=== PATIENT | female | born 1955 | race American Indian/Alaskan Native ===

== ENCOUNTER 2017-06-22 16:18 | Outpatient (CLI) | payer OTHER ==
--- NOTE | 2017-06-24 11:52 | Magnetic Resonance Report ---
MRI LUMBAR SPINE WITHOUT CONTRAST: 06/22/17 CLINICAL: Lumbar pain and radiculopathy. TECHNIQUE: Sagittal and axial T1 and T2, and sagittal STIR sequences on a 1.5 Annemarie magnet. FINDINGS: Grade I L4-5 spondylolisthesis with no pars defect identified. L4-5 disc space narrowing and Modic endplate changes at L4 and L5 bodies. Rest of the vertebral bodies are normal alignment with normal vertebral body height and disc spaces. The overall marrow signal is normal. The conus medullaris is normal and terminates at T12-L1. L1-2: Intact. L2-3: Intact disc. Mild bilateral facet hypertrophy and ligamentum flavum hypertrophy. L3-4: Mild circumferential disc bulge. Mild bilateral facet hypertrophy and ligamentum flavum hypertrophy. No neural foraminal narrowing. L4-5: Grade I spondylolisthesis but no pars defect. Degeneration of the disc and a large broad-based central and left paracentral disc protrusion with disc protrusion extending into bilateral neural foramina. Marked narrowing of the right neural foramen. Paradoxically, there is a larger disc protrusion on the left side but the left neural foramen is wider with less narrowing than on the right. This is likely attributable to differences in the degree of spondylolisthesis on each side. L5-S1: Small focal right central disc protrusion producing mass effect on the right S2 nerve root. No neural foraminal narrowing. IMPRESSION: 1. Grade I L4-5 spondylolisthesis with no pars defect. A large broad-based central and left paracentral disc protrusion at L4-5 with disc protrusion extending into bilateral neural foramina. Marked right L4-5 neural foraminal narrowing and moderate left L4-5 neural foraminal narrowing. 2. A small right paracentral L5-S1 disc protrusion producing mass effect on the right S2 nerve root. 3. Mild L3-4 degenerative disc disease with a mild bulge of the disc. 4. Multilevel facet joint arthropathy.
== END 2017-06-22 16:19 | disposition home or self-care (01) ==
LOC: MRI 16:18
PROVIDERS: ATTEND Physical Medicine & Rehabilitation
DX: M48.061 Spinal stenosis, lumbar region without neurogenic claudication (principal); M54.16 Radiculopathy, lumbar region; M43.16 Spondylolisthesis, lumbar region; M51.27 Other intervertebral disc displacement, lumbosacral region; M51.36 Other intervertebral disc degeneration, lumbar region; M12.88 Other specific arthropathies, not elsewhere classified, other specified site; M24.28 Disorder of ligament, vertebrae
CPT/HCPCS: 72148

== ENCOUNTER 2017-07-03 09:48 | Emergency (ER) | payer OTHER ==
[2017-07-03 11:31] VITALS: BP 151/103
--- NOTE | 2017-07-03 13:14 | Emergency Department Report ---
ED Back Pain/Injury HPI - General Chief Complaint: Back Pain/Injury Stated Complaint: LOWER BACK PAIN Time Seen by Provider: 07/03/17 12:59 Source: patient Limitations: No Limitations - History of Present Illness Initial Comments: Patient is a 61-year-old female presented with right-sided sciatica pain. Patient states been present for approximately 6 months however is worsened over the last week. Patient is on Tylenol 3 gabapentin for pain for the last several days was to stay stated that she was unable to really get out of bed this morning without significant pain. Patient denies any more recent trauma. Patient states it's right lower back radiating down her leg. Patient states pain is 9 out of 10 in severity. Patient denies any nausea vomiting fevers chills dysuria urinary frequency urinary retention or fecal incontinence at this time. - Related Data Home Medications Medication Instructions Recorded Confirmed Last Taken ALBUTEROL Inhaler [Proair] 2 puff IH QID PRN 11/16/15 11/16/15 Unknown Vitamin D 1 tab PO DAILY 11/16/15 11/16/15 Unknown Previous Rx's Medication Instructions Recorded Last Taken Type Albuterol Sulfate [Ventolin HFA] 2 puff IH Q4H PRN #1 hfa.[email or web address] 09/29/13 06:00 Rx Lisinopril/Hydrochlorothiazide 1 each PO QDAY #30 tablet 06/27/14 Unknown Rx [Zestoretic 20-25 mg] Metoprolol [Lopressor TAB] 50 mg PO BID #60 tablet 06/27/14 Unknown Rx NIFEdipine [NIFEdipine ER] 90 mg PO QDAY #30 tab.er.24 06/27/14 Unknown Rx Pravastatin [Pravachol] 40 mg PO QDAY #30 tablet 06/27/14 Unknown Rx Spironolactone 25 mg PO QDAY #30 tablet 06/27/14 Unknown Rx Cyclobenzaprine HCl [Flexeril 5 MG 5 mg PO TID #20 tab 11/16/15 Unknown Rx TAB] Ibuprofen [Motrin 600 MG tab] 600 mg PO Q8H PRN #30 tablet 11/16/15 Unknown Rx HYDROcodone/APAP 5-325 [[place] 1 each PO Q6HR PRN #12 tablet 07/03/17 Unknown Rx 5/325] ED Review of Systems ROS: Stated complaint: LOWER BACK PAIN Other details as noted in HPI Comment: All other systems reviewed and negative ED Past Medical Hx - Past Medical History Hx Hypertension: Yes Hx Diabetes: Yes Hx Arthritis: Yes Hx Asthma: Yes Additional medical history: bronchitis - Surgical History Hx Cholecystectomy: Yes Additional Surgical History: sinus surg, hemorrhoidectomy - Social History Smoking Status: Never Smoker Substance Use Type: Alcohol - Medications Home Medications: Home Medications Medication Instructions Recorded Confirmed Last Taken Type Albuterol Sulfate [Ventolin HFA] 2 puff IH Q4H PRN #1 hfa.aer.ad 09/29/1306/27/14 06:00 Rx Lisinopril/Hydrochlorothiazide 1 each PO QDAY #30 tablet 06/27/14 11/16/15 Unknown Rx [Zestoretic 20-25 mg] Metoprolol [Lopressor TAB] 50 mg PO BID #60 tablet 06/27/14 11/16/15 Unknown Rx NIFEdipine [NIFEdipine ER] 90 mg PO QDAY #30 tab.er.24 06/27/14 11/16/15 Unknown Rx Pravastatin [Pravachol] 40 mg PO QDAY #30 tablet 06/27/14 11/16/15 Unknown Rx Spironolactone 25 mg PO QDAY #30 tablet 06/27/14 11/16/15 Unknown Rx ALBUTEROL Inhaler [Proair] 2 puff IH QID PRN 11/16/15 11/16/15 Unknown History Cyclobenzaprine HCl [Flexeril 5 MG 5 mg PO TID #20 tab 11/16/15 Unknown Rx TAB] Ibuprofen [Motrin 600 MG tab] 600 mg PO Q8H PRN #30 tablet 11/16/15 Unknown Rx Vitamin D 1 tab PO DAILY 11/16/15 11/16/15 Unknown History HYDROcodone/APAP 5-325 [[place] 1 each PO Q6HR PRN #12 tablet 07/03/17 Unknown Rx 5/325] ED Physical Exam - General Limitations: No Limitations General appearance: alert, in no apparent distress - Head Head exam: Present: atraumatic, normocephalic - Eye Eye exam: Present: normal appearance - ENT ENT exam: Present: mucous membranes moist - Neck Neck exam: Present: normal inspection - Respiratory Respiratory exam: Present: normal lung sounds bilaterally. Absent: respiratory distress - Cardiovascular Cardiovascular Exam: Present: regular rate, normal rhythm. Absent: systolic murmur, diastolic murmur, rubs, gallop - GI/Abdominal GI/Abdominal exam: Present: soft, normal bowel sounds - Extremities Exam Extremities exam: Present: normal inspection - Back Exam Back exam: Present: normal inspection - Neurological Exam Neurological exam: Present: alert, oriented X3 - Psychiatric Psychiatric exam: Present: normal affect, normal mood - Skin Skin exam: Present: warm, dry, intact, normal color. Absent: rash ED Course Vital Signs 07/03/17 11:29 Temperature 98.1 F Pulse Rate 98 H Respiratory 18 Rate Blood Pressure 151/103 O2 Sat by Pulse 98 Oximetry ED Medical Decision Making - Medical Decision Making Patient WILL have her Tylenol 3 changed to Vicodin patient be discharged home. Patient will not be started on steroids since she is diabetic. Critical care attestation.: If time is entered above; I have spent that time in minutes in the direct care of this critically ill patient, excluding procedure time. ED Disposition Clinical Impression: Sciatica Qualifiers: Laterality: right Qualified Code(s): M54.31 - Sciatica, right side Disposition: - TO HOME OR SELFCARE Is pt being admited?: No Does the pt Need Aspirin: No Condition: Stable Instructions: Lumbar Radiculopathy (ED) Prescriptions: HYDROcodone/APAP 5-325 [[place] 5/325] 1 each PO Q6HR PRN #12 tablet PRN Reason: Pain Referrals: PRIMARY CARE, [Primary Care Provider] - 3-5 Days
== END 2017-07-03 13:18 | disposition home or self-care (01) ==
LOC: ED 09:48
DX: M54.41 Lumbago with sciatica, right side (principal); I10 Essential (primary) hypertension; E11.9 Type 2 diabetes mellitus without complications; M19.90 Unspecified osteoarthritis, unspecified site
CPT/HCPCS: 99282

== ENCOUNTER 2017-07-22 10:58 | Emergency (ER) | payer OTHER ==
[2017-07-22] MEDS ORDERED: FLEXERIL PO ONE (12:30)
[2017-07-22] MEDS ORDERED: TORADOL IM ONE (12:30)
--- NOTE | 2017-07-22 12:47 | Emergency Department Report ---
HPI - General Chief Complaint: Back Pain/Injury Time Seen by Provider: 07/22/17 12:30 - HPI HPI: Patient is a 61-year-old female who presents to ED complaining of acute on chronic right buttock/hip pain radiating to thighs. Patient states she has a history of sciatica and currently sees a orthopedic doctor. Patient states that she is waiting on insurance to approve for cortisone shot should be done by orthopedic. She states that the past couple of days that the pain has gotten a bit worse. SHe denies any recent trauma or injuries or falls. ED Past Medical Hx - Past Medical History Hx Hypertension: Yes Hx Diabetes: Yes Hx Arthritis: Yes Hx Asthma: Yes Additional medical history: bronchitis, chronic back pain. - Surgical History Hx Cholecystectomy: Yes Additional Surgical History: sinus surg, hemorrhoidectomy - Social History Smoking Status: Never Smoker Substance Use Type: None - Medications Home Medications: Home Medications Medication Instructions Recorded Confirmed Last Taken Type Albuterol Sulfate [Ventolin HFA] 2 puff IH Q4H PRN #1 hfa.aer.ad 09/29/1306/27/14 06:00 Rx Lisinopril/Hydrochlorothiazide 1 each PO QDAY #30 tablet 06/27/14 11/16/15 Unknown Rx [Zestoretic 20-25 mg] Metoprolol [Lopressor TAB] 50 mg PO BID #60 tablet 06/27/14 11/16/15 Unknown Rx NIFEdipine [NIFEdipine ER] 90 mg PO QDAY #30 tab.er.24 06/27/14 11/16/15 Unknown Rx Pravastatin [Pravachol] 40 mg PO QDAY #30 tablet 06/27/14 11/16/15 Unknown Rx Spironolactone 25 mg PO QDAY #30 tablet 06/27/14 11/16/15 Unknown Rx ALBUTEROL Inhaler [Proair] 2 puff IH QID PRN 11/16/15 11/16/15 Unknown History Cyclobenzaprine HCl [Flexeril 5 MG 5 mg PO TID #20 tab 11/16/15 Unknown Rx TAB] Ibuprofen [Motrin 600 MG tab] 600 mg PO Q8H PRN #30 tablet 11/16/15 Unknown Rx Vitamin D 1 tab PO DAILY 11/16/15 11/16/15 Unknown History HYDROcodone/APAP 5-325 [[place] 1 each PO Q6HR PRN #12 tablet 07/03/17 Unknown Rx 5/325] Cyclobenzaprine [Flexeril 10 MG 10 mg PO QHS #20 tablet 07/22/17 Unknown Rx TAB] Diclofenac Dr [Voltaren Dr] 75 mg PO BID #20 tablet 07/22/17 Unknown Rx ED Review of Systems ROS: Stated complaint: CHRONIC BACK PAIN Other details as noted in HPI Constitutional: denies: chills, fever Eyes: denies: eye pain, eye discharge, vision change ENT: denies: ear pain, throat pain Respiratory: denies: cough, shortness of breath, wheezing Cardiovascular: denies: chest pain, palpitations Endocrine: no symptoms reported Gastrointestinal: denies: abdominal pain, nausea, diarrhea Genitourinary: denies: urgency, dysuria, discharge Musculoskeletal: denies: back pain, joint swelling, arthralgia Skin: denies: rash, lesions Neurological: denies: headache, weakness, paresthesias Psychiatric: denies: anxiety, depression Hematological/Lymphatic: denies: easy bleeding, easy bruising Physical Exam - Physical Exam Vital Signs: Vital Signs 07/22/17 11:49 Temperature 98 F Pulse Rate 63 Respiratory 16 Rate Blood Pressure 173/95 O2 Sat by Pulse 97 Oximetry Physical Exam: GENERAL: Alert and oriented x3, no apparent distress, Normal Gait, atraumatic. HEAD: Head is normocephalic and a-traumatic. NECK: Supple. Non edematous, No lymphadenopathy or thyromegaly. No C-spine tenderness, full range of motion LUNGS: Symetrical with respiration, No wheezing, no rales or crackles, CTAB. HEART: S1, S2 present, regular rate and rhythm without murmur, no rubs, no gallops. Non tender to palpation BACK: Full range of motion, no spinal tenderness. EXTREMITIES/MUSCULOSKELETAL: No cyanosis, clubbing, rash, lesions or edema on all lower extremities. Full ROM bilaterally. UE/LE Pulses 2+ bilaterally. LE and UE 5+ strength bilaterally, patient able to flex and extend hip, knee without problems NEUROLOGIC: The patient is cooperative with no focal neurologic deficits. SKIN: Warm and dry, No lesions, No ulceration or induration present. ED Course Vital Signs 07/22/17 11:49 Temperature 98 F Pulse Rate 63 Respiratory 16 Rate Blood Pressure 173/95 O2 Sat by Pulse 97 Oximetry ED Medical Decision Making - Medical Decision Making 61-year-old female presents to ED with lumbar radiculopathy with sciatica. ED course: Patient received Toradol and Flexeril in ED. Discussed patient to call her insurance and follow-up with her orthopedic doctor. Vital signs are normal patient is in no acute distress Discussed with patient follow-up with primary care physician. Discussed the patient and take medications as prescribed. Patient has no neurological deficit. Patient is alert and oriented 3 and understands all instructions given. Discussed drowsiness effect of Flexeril makes her drowsy and not to operate machinery while taking flexeril Critical care attestation.: If time is entered above; I have spent that time in minutes in the direct care of this critically ill patient, excluding procedure time. ED Disposition Clinical Impression: Lumbar pain with radiation down right leg, Lumbar radiculopathy, chronic Disposition: [id number] TO HOME OR SELFCARE Is pt being admited?: No Does the pt Need Aspirin: No Condition: Stable Instructions: Lumbar Radiculopathy (ED), Chronic Back Pain (ED) Additional Instructions: Make sure to follow up with the primary care physician as discussed. Take all your medications as you've been prescribed. If you have any worsening symptoms or develop new symptoms please return to ED immediately. Prescriptions: Cyclobenzaprine [Flexeril 10 MG TAB] 10 mg PO QHS #20 tablet Diclofenac [Dante Campbell] 75 mg PO BID #20 tablet Forms: Work/School Release Form(ED) Time of Disposition: 13:02
[2017-07-22 13:28] VITALS: BP 132/80
== END 2017-07-22 13:27 | disposition home or self-care (01) ==
LOC: ED 10:58
DX: M54.16 Radiculopathy, lumbar region (principal); M54.5 Low back pain; G89.29 Other chronic pain; I10 Essential (primary) hypertension; E11.9 Type 2 diabetes mellitus without complications; M19.90 Unspecified osteoarthritis, unspecified site; J45.909 Unspecified asthma, uncomplicated
CPT/HCPCS: 96372; 99282; J1885

== ENCOUNTER 2019-11-12 15:50 | Emergency (ER) | payer MEDICARE ==
--- NOTE | 2019-11-12 16:18 | Event Note ---
ED Screening Note ED Screening Note: This initial assessment/diagnostic orders/clinical plan/treatment(s) is/are subject to change based on patients health status, clinical progression and re- assessment by fellow clinical providers in the ED. Further treatment and workup at subsequent clinical providers discretion. Patient/guardian urged not to elope from the ED as their condition may be serious if not clinically assessed and managed. Initial orders include: chest xray
--- NOTE | 2019-11-12 17:18 | XRay Report ---
CHEST 2 VIEWS INDICATION: cough. COMPARISON: None FINDINGS: Support devices: None. Heart: Within normal limits. Lungs/pleura: No acute air space or interstitial disease. No pneumothorax. Additional findings: None. IMPRESSION: No acute findings. Signer Name: Dago Anguiano Jr, MD Signed: 11/12/2019 5:14 PM Workstation Name: [id number]
[2019-11-12 19:00] LABS: Hematocrit 38.2 % (30.3-42.9); Hemoglobin 13.3 gm/dl (10.1-14.3); Mean Corpuscular HGB Conc 35 % (30-34); Mean Corpuscular Volume 90 fl (79-97); Platelet Count 344 K/mm3 (140-440); Red Blood Count 4.26 M/mm3 (3.65-5.03); Red Cell Distribution Width 15.1 % (13.2-15.2)
[2019-11-12 19:17] LABS: Alanine Aminotransferase 44 units/L (7-56); Albumin 3.9 g/dL (3.9-5); BUN/Creatinine Ratio 19; Blood Urea Nitrogen 23 mg/dL (7-17); Calcium 9.7 mg/dL (8.4-10.2); Hemolysis Index 8
--- NOTE | 2019-11-12 19:48 | Emergency Department Report ---
- General Chief Complaint: Upper Respiratory Infection Stated Complaint: COUGH Time Seen by Provider: 11/12/19 16:18 Source: patient Mode of arrival: Ambulatory Limitations: No Limitations - History of Present Illness Initial Comments: Patient is a 64-year-old female presents emergency room with complaints of sinus pressure and drainage that began 2 days ago. She states that she also has a postnasal drip and nasal congestion. She states that the postnasal drip is giving her a dry cough. She states that her ears also feel like they are clogged. She denies any productive cough, shortness of breath, chest pain, fever, nausea, vomiting, diarrhea. She denies any known sick contacts or recent travel. She has a past medical history of diabetes, hypertension, mild asthma. No allergies to medications. She states that she was previously on glipizide and metformin for her diabetes but her doctor changed her to once weekly Trulicity and they were going to reevaluate to see if she neededfurther medication management. She states that she has appointment with her doctor t omorrow 11/13/2019. - Related Data Home Medications Medication Instructions Recorded Confirmed Last Taken Albuterol Mdi (or & Nicu Only) 2 puff IH QID PRN 11/16/15 11/16/15 Unknown [Proair] Vitamin D 1 tab PO DAILY 11/16/15 11/16/15 Unknown Previous Rx's Medication Instructions Recorded Last Taken Type Albuterol Sulfate [Ventolin HFA] 2 puff IH Q4H PRN #1 hfa.aer.ad 09/29/13 06/27/14 06:00 Rx Lisinopril/Hydrochlorothiazide 1 each PO QDAY #30 tablet 06/27/14 Unknown Rx [Zestoretic 20-25 mg] Metoprolol [Lopressor TAB] 50 mg PO BID #60 tablet 06/27/14 Unknown Rx NIFEdipine [NIFEdipine ER] 90 mg PO QDAY #30 tab.er.24 06/27/14 Unknown Rx Pravastatin [Pravachol] 40 mg PO QDAY #30 tablet 06/27/14 Unknown Rx Spironolactone 25 mg PO QDAY #30 tablet 06/27/14 Unknown Rx Cyclobenzaprine HCl [Flexeril 5 MG 5 mg PO TID #20 tab 11/16/15 Unknown Rx TAB] Ibuprofen [Motrin 600 MG tab] 600 mg PO Q8H PRN #30 tablet 11/16/15 Unknown Rx HYDROcodone/APAP 5-325 [[place] 1 each PO Q6HR PRN #12 tablet 07/03/17 Unknown Rx 5/325] Cyclobenzaprine [Flexeril 10 MG 10 mg PO QHS #20 tablet 07/22/17 Unknown Rx TAB] Diclofenac Dr [Voltaren Dr] 75 mg PO BID #20 tablet 07/22/17 Unknown Rx Acetaminophen/Chlorpheniramine 1 each PO Q6HR #14 tablet 11/12/19 Unknown Rx [Coricidin Hbp Cold-Flu Tablet] Amoxicillin/Potassium Clav 1 each PO BID 10 Days #20 tablet 11/12/19 Unknown Rx [Augmentin 875-125 Tablet] Cetirizine HCl [Zyrtec 10mg tab] 10 mg PO DAILY #14 tablet 11/12/19 Unknown Rx Allergies Allergy/AdvReac Type Severity Reaction Status Date / Time No Known Allergies Allergy Verified 11/12/19 15:57 ED Review of Systems ROS: Stated complaint: COUGH Other details as noted in HPI Comment: All other systems reviewed and negative ED Past Medical Hx - Past Medical History Previous Medical History?: Yes Hx Hypertension: Yes Hx Diabetes: Yes Hx Arthritis: Yes Hx Asthma: Yes Additional medical history: bronchitis, chronic back pain. - Surgical History Past Surgical History?: Yes Hx Cholecystectomy: Yes Additional Surgical History: sinus surg, hemorrhoidectomy - Social History Smoking Status: Never Smoker Substance Use Type: Alcohol - Medications Home Medications: Home Medications Medication Instructions Recorded Confirmed Last Taken Type Albuterol Sulfate [Ventolin HFA] 2 puff IH Q4H PRN #1 hfa.aer.ad 09/29/13 11/16/15 06/27/14 06:00 Rx Lisinopril/Hydrochlorothiazide 1 each PO QDAY #30 tablet 06/27/14 11/16/15 Unknown Rx [Zestoretic 20-25 mg] Metoprolol [Lopressor TAB] 50 mg PO BID #60 tablet 06/27/14 11/16/15 Unknown Rx NIFEdipine [NIFEdipine ER] 90 mg PO QDAY #30 tab.er.24 06/27/14 11/16/15 Unknown Rx Pravastatin [Pravachol] 40 mg PO QDAY #30 tablet 06/27/14 11/16/15 Unknown Rx Spironolactone 25 mg PO QDAY #30 tablet 06/27/14 11/16/15 Unknown Rx Albuterol Mdi (or & Nicu Only) 2 puff IH QID PRN 11/16/15 11/16/15 Unknown History [Proair] Cyclobenzaprine HCl [Flexeril 5 MG 5 mg PO TID #20 tab 11/16/15 Unknown Rx TAB] Ibuprofen [Motrin 600 MG tab] 600 mg PO Q8H PRN #30 tablet 11/16/15 Unknown Rx Vitamin D 1 tab PO DAILY 11/16/15 11/16/15 Unknown History HYDROcodone/APAP 5-325 [[place] 1 each PO Q6HR PRN #12 tablet 07/03/17 Unknown Rx 5/325] Cyclobenzaprine [Flexeril 10 MG 10 mg PO QHS #20 tablet 07/22/17 Unknown Rx TAB] Diclofenac Dr [Voltaren Dr] 75 mg PO BID #20 tablet 07/22/17 Unknown Rx Acetaminophen/Chlorpheniramine 1 each PO Q6HR #14 tablet 11/12/19 Unknown Rx [Coricidin Hbp Cold-Flu Tablet] Amoxicillin/Potassium Clav 1 each PO BID 10 Days #20 tablet 11/12/19 Unknown Rx [Augmentin 875-125 Tablet] Cetirizine HCl [Zyrtec 10mg tab] 10 mg PO DAILY #14 tablet 11/12/19 Unknown Rx ED Physical Exam - General Limitations: No Limitations General appearance: alert, in no apparent distress - Head Head exam: Present: atraumatic, normocephalic - Eye Eye exam: Present: normal appearance - ENT ENT exam: Present: normal orophraynx, mucous membranes moist, TM's normal bilaterally, normal external ear exam, other (pale edematous turbinates with mucus drainage bilaterally) - Respiratory Respiratory exam: Present: normal lung sounds bilaterally. Absent: respiratory distress, wheezes, rales, rhonchi, stridor, chest wall tenderness, accessory muscle use, decreased breath sounds, prolonged expiratory - Cardiovascular Cardiovascular Exam: Present: regular rate, normal rhythm, normal heart sounds. Absent: systolic murmur, diastolic murmur, rubs, gallop - Neurological Exam Neurological exam: Present: alert, oriented X3 - Psychiatric Psychiatric exam: Present: normal affect, normal mood - Skin Skin exam: Present: warm, dry, intact ED Course Vital Signs 11/12/19 11/12/19 11/12/19 15:59 20:09 20:12 Temperature 98.4 F 99.0 F 99.0 F Pulse Rate 75 69 70 Respiratory 16 16 16 Rate Blood Pressure 175/92 170/83 Blood Pressure 170/83 [Left] O2 Sat by Pulse 99 100 98 Oximetry ED Medical Decision Making - Lab Data Result diagrams: 11/12/19 18:50 11/12/19 18:50 Lab Results 11/12/19 11/12/19 11/12/19 Range/Units 18:50 18:50 18:50 WBC 6.6 (4.5-11.0) K/mm3 RBC 4.26 (3.65-5.03) M/mm3 Hgb 13.3 (10.1-14.3) gm/dl Hct 38.2 (30.3-42.9) % MCV 90 (79-97) fl MCH 31 (28-32) pg MCHC 35 H (30-34) % RDW 15.1 (13.2-15.2) % Plt Count 344 (140-440) K/mm3 VBG pH 7.375 (7.320-7.420) Sodium 135 L (137-145) mmol/L Potassium 3.7 (3.6-5.0) mmol/L Chloride 98.1 (98-107) mmol/L Carbon Dioxide 27 (22-30) mmol/L Anion Gap 14 mmol/L BUN 23 H (7-17) mg/dL Creatinine 1.2 (0.6-1.2) mg/dL Estimated GFR 55 ml/min BUN/Creatinine Ratio 19 % Glucose 298 H (65-100) mg/dL Calcium 9.7 (8.4-10.2) mg/dL Total Bilirubin < 0.20 (0.1-1.2) mg/dL AST 26 (5-40) units/L ALT 44 (7-56) units/L Alkaline Phosphatase 113 (35-129) units/L Total Protein 7.7 (6.3-8.2) g/dL Albumin 3.9 (3.9-5) g/dL Albumin/Globulin Ratio 1.0 % Vital Signs 11/12/19 11/12/19 11/12/19 15:59 20:09 20:12 Temperature 98.4 F 99.0 F 99.0 F Pulse Rate 75 69 70 Respiratory 16 16 16 Rate Blood Pressure 175/92 170/83 Blood Pressure 170/83 [Left] O2 Sat by Pulse 99 100 98 Oximetry - Radiology Data Radiology results: report reviewed CHEST 2 VIEWS INDICATION: cough. COMPARISON: None FINDINGS: Support devices: None. Heart: Within normal limits. Lungs/pleura: No acute air space or interstitial disease. No pneumothorax. Additional findings: None. IMPRESSION: No acute findings. Signer Name: Dago Samuels Jr, MD Signed: 11/12/2019 5:14 PM Workstation Name: [id number] Transcribed By: TTR Dictated By: DAGO SAMUELS JR, MD Electronically Authenticated By: DAGO SAMUELS JR, MD Signed Date/Time: 11/12/191713 DD/ 13 TD/TT: - Medical Decision Making Patient is a 64-year-old female presents emergency room with complaints of sinus pressure and drainage that began 2 days ago. She states that she also has a postnasal drip and nasal congestion. She states that the postnasal drip is giving her a dry cough. She states that her ears also feel like they are clogge d. She denies any productive cough, shortness of breath, chest pain, fever, nausea, vomiting, diarrhea. She denies any known sick contacts or recent travel. She has a past medical history of diabetes, hypertension, mild asthma. No allergies to medications. She states that she was previously on glipizide and metformin for her diabetes but her doctor changed her to once weekly Trulicity and they were going to reevaluate to see if she neededfurther medication management. She states that she has appointment with her doctor tomorrow 11/13/2019. Vitals with elevated blood pressure, otherwise stable, discussed blood pressure elevation with patient, she states that she has an appointment with her primary care physician tomorrow, she states that she did take her blood pressure medication this morning, she is not having any symptoms related to elevated blood pressure. on exam: pale edematous turbinates with mucus drainage bilaterally, breath sounds are clear bilaterally, no w/r/r. Appears patient is having allergic rhinitis/sinusitis. labs with elevated blood glucose at 298, otherwise stable, discussed elevation with pt and she states her PCP is monitoring this as well. CXR: No acute findings. Patient given prescription for Augmentin, corcidin, Zyrtec. no clinical signs of PNA. Advised patient Please take medication as prescribed. Please also use Flonase nasal spray. Please keep your appointment with your primary care doctor for tomorrow 11/13/2019. Please discuss with your primary care doctor the elevation in your blood pressure during today's visit. Please also advise your primary care physician about your blood sugar which was 298 on your lab work today. Increase your water intake, decrease your sodium/sugar/carbohydrate intake, incorporate 30 minutes of daily exercise. Return to emergency room immediately for any new or worsening symptoms. Critical care attestation.: If time is entered above; I have spent that time in minutes in the direct care of this critically ill patient, excluding procedure time. ED Disposition Clinical Impression: Sinus pressure, Nasal congestion, Rhinorrhea, Dry cough, Elevated blood pressure reading, Hyperglycemia Sinusitis Qualifiers: Sinusitis location: unspecified location Chronicity: acute Recurrence: non- recurrent Qualified Code(s): J01.90 - Acute sinusitis, unspecified Disposition: DC- TO HOME OR SELFCARE Is pt being admited?: No Does the pt Need Aspirin: No Condition: Stable Instructions: Sinusitis (ED) Additional Instructions: Please take medication as prescribed. Please also use Flonase nasal spray. Please keep your appointment with your primary care doctor for tomorrow 11/13/2019. Please discuss with your primary care doctor the elevation in your blood pressure during today's visit. Please also advise your primary care physician about your blood sugar which was 298 on your lab work today. Increase your water intake, decrease your sodium/sugar/carbohydrate intake, incorporate 30 minutes of daily exercise. Return to emergency room immediately for any new or worsening symptoms. Prescriptions: Amoxicillin/Potassium Clav [Augmentin 875-125 Tablet] 1 each PO BID 10 Days #20 tablet Acetaminophen/Chlorpheniramine [Coricidin Hbp Cold-Flu Tablet] 1 each PO Q6HR #14 tablet Cetirizine HCl [Zyrtec 10mg tab] 10 mg PO DAILY #14 tablet Referrals: PRIMARY CARE, [Primary Care Provider] - 24 Hours Time of Disposition: 19:46 Print Language: GREENLAND[place]
[2019-11-12 20:12] VITALS: BP 170/83
== END 2019-11-12 20:15 | disposition home or self-care (01) ==
LOC: ED 15:50
DX: E11.65 Type 2 diabetes mellitus with hyperglycemia (principal); J32.9 Chronic sinusitis, unspecified; R09.81 Nasal congestion; J34.89 Other specified disorders of nose and nasal sinuses; R05 Cough; I10 Essential (primary) hypertension; M19.91 Primary osteoarthritis, unspecified site; J45.909 Unspecified asthma, uncomplicated; Z90.49 Acquired absence of other specified parts of digestive tract; Z90.89 Acquired absence of other organs; Z79.1 Long term (current) use of non-steroidal anti-inflammatories (NSAID); Z79.2 Long term (current) use of antibiotics; Z79.899 Other long term (current) drug therapy
CPT/HCPCS: 36415; 71046; 80053; 82010; 82805; 85027